=== PATIENT | female | born 1945 | race Caucasian/White ===

== ENCOUNTER 2017-08-23 11:00 | Outpatient (RCR) | payer MEDICARE | END 2017-08-23 11:30 | disposition home or self-care (01) | LOC: PT 11:00 | DX: M25.512 Pain in left shoulder (principal); M25.511 Pain in right shoulder | CPT/HCPCS: G8978-GP; G8979-GP ==

== ENCOUNTER → 2017-10-24 | Outpatient (CLI) | payer MEDICARE | LOC: PT 10:57 | DX: Z01.818 Encounter for other preprocedural examination (principal) ==

== ENCOUNTER 2018-01-24 11:00 | Outpatient (RCR) | payer MEDICARE | END 2018-01-27 | disposition home or self-care (01) | LOC: PT | DX: Z47.89 Encounter for other orthopedic aftercare (principal); M75.101 Unspecified rotator cuff tear or rupture of right shoulder, not specified as traumatic | CPT/HCPCS: G8978-GP; G8979-GP; G8985-GP ==

== ENCOUNTER 2018-03-20 13:00 | Outpatient (RCR) | payer MEDICARE | END 2018-03-20 13:30 | disposition home or self-care (01) | LOC: PT 13:00 | DX: Z47.89 Encounter for other orthopedic aftercare (principal) | CPT/HCPCS: G8985-GP ==

== ENCOUNTER → 2018-03-20 | Outpatient (CLI) | payer MEDICARE | LOC: MAMMO 11:23 | DX: Z12.31 Encounter for screening mammogram for malignant neoplasm of breast (principal) ==

== ENCOUNTER → 2021-03-29 | Outpatient (CLI) | payer MEDICARE | LOC: MAMMO 12:57 | DX: Z12.31 Encounter for screening mammogram for malignant neoplasm of breast (principal) ==

== ENCOUNTER → 2025-02-19 | Outpatient (CLI) | payer MEDICARE | LOC: RAD 13:13 → LAB 13:13 | DX: R05.3 Chronic cough (principal); R06.00 Dyspnea, unspecified ==